=== PATIENT | male | born 1980 | race African-American/Black ===

== ENCOUNTER 2020-05-26 15:28 | Emergency (ER) | payer OTHER ==
[~2020-05-26] VITALS: Ht 177.8 cm; Wt 81.6 kg
--- NOTE | 2020-05-26 15:33 | Emergency Room Report ---
History of Present Illness General Chief Complaint: Overdose Source: Patient, EMS Present Illness HPI Disclaimer: Please note that this report is being documented using DRAGON technology. This can lead to erroneous entry secondary to incorrect interpretation by the dictating instrument. HPI: 39-year-old male with history of ESRD on hemodialysis MWF and substance abuse presents for evaluation of chest pain after using PCP. Patient states he was using PCP yesterday after which developed a pinching sensation over the left side of the chest. Denies shortness of breath, cough, swelling. Chest pain is been intermittent since. Does not seem to be related to activity or relieved by rest. Denies pain in the back, headache, vision changes, fever, chills, abdominal pain, nausea, vomiting. He is scheduled for hemodialysis today but missed his appointment. He received a full course of hemodialysis on Sunday. Denies alcohol or other drug use. PMH: ESRD, hypertension, substance abuse PSH: Dialysis access catheters Allergies: None reported Social Hx: PCP use Allergies: Coded Allergies: No Known Allergies (Unverified , 05/26/20) COVID-19 Screening Contact w/high risk pt: No Experienced COVID-19 symptoms?: No COVID-19 Testing performed PLANISHER: No Review of Systems All Other Systems: negative except mentioned in HPI Physical Exam Vital Signs Date Time Temp Pulse Resp B/P (MAP) Pulse Ox O2 Delivery O2 Flow Rate FiO2 05/26/20 15:18 98.1 104 14 196/123 (147) 97 Room Air General: Awake and alert, no acute distress, hypertensive HEENT: NC/AT. EOMI. Cardiovascular: Slightly tachycardic. S1 and S2 normal. Fistula with palpable thrill in right upper extremity. Resp: Normal work of breathing. No cough, wheezing or crackles appreciated Abdomen: Abdomen is soft, nondistended. Nontender Skin: Intact. No abrasions, laceration or rash over the exposed skin MSK: Normal tone and bulk. Moving all extremities. No obvious deformity. Neuro: Awake and alert. Mentating appropriately. Procedures Critical Care Time Critical Care Time Total critical care time: Approximately 45 minutes Due to a high probability of clinically significant, life threatening deterioration, the patient required the highest level of preparedness to intervene emergently and I personally spent this critical care time directly and personally managing the patient. This critical care time included obtaining a history, examining the patient, pulse oximetry, ordering and reviewing studies , ordering treatments, evaluating response to treatment and updating management plan as needed, frequent reassessment and discussion with other providers as well as arranging for ultimate disposition. This critical to care time was performed to assess and manage the high probability of life-threatening deterioration that could result in multiorgan failure. This critical care time is separate from the separately billable procedures and treating other patients. Medical Decision Making Diagnostic Impression: Primary Impression: ESRD (end stage renal disease) on dialysis Additional Impressions: Hypertensive urgency Substance abuse Elevated troponin ER Course 39-year-old male with history of ESRD on hemodialysis MWF presents for evaluation of chest discomfort after PCP use. Also missed dialysis today. Differential includes was not limited to chest pain secondary to drug use, ACS, arrhythmia, electrolyte abnormality. Patient is an uric and therefore cannot order drug screen but will order blood work including cardiac labs, BN peptide, chest x-ray. 1900: EKG does not show signs of acute ischemia or peak T waves. Chest x-ray does not show evidence of fluid overload or infiltrates. BNP elevated greater than 15,000, troponin slightly elevated 0.088. No prior for comparison. Labs consistent with end-stage renal disease with elevated BUN/creatinine. Patient' s blood pressure showed some initial improvement but remains hypertensive. He was treated with hydralazine and nitroglycerin ointment. He will require trend tropes, dialysis. He will be transferred to [facility] ([facility] ) according to his insurance provider. Dr. Branham accepting physician. Patient is stable for transfer. Laboratory Tests Test 05/26/20 16:25 White Blood Count 6.0 K/UL (4.8-10.8) Red Blood Count 3.89 M/UL (4.70-6.10) L Hemoglobin 11.6 G/DL (14.2-18.0) L Hematocrit 36.4 % (42.0-52.0) L Mean Corpuscular Volume 93 FL (80-99) Mean Corpuscular Hemoglobin 29.9 PG (27.0-31.0) Mean Corpuscular Hemoglobin Concent 32.0 G/DL (32.0-36.0) Red Cell Distribution Width 18.1 % (11.6-14.8) H Platelet Count 163 K/UL (150-450) Mean Platelet Volume 6.5 FL (6.5-10.1) Neutrophils (%) (Auto) 57.5 % (45.0-75.0) Lymphocytes (%) (Auto) 17.2 % (20.0-45.0) L Monocytes (%) (Auto) 7.3 % (1.0-10.0) Eosinophils (%) (Auto) 16.4 % (0.0-3.0) H Basophils (%) (Auto) 1.6 % (0.0-2.0) Prothrombin Time 12.0 SEC (9.30-11.50) H Prothrombin Time INR 1.1 (0.9-1.1) Activated Partial Thromboplast Time 28 SEC (23-33) Sodium Level 143 MMOL/L (136-145) Potassium Level 5.0 MMOL/L (3.5-5.1) Chloride Level 99 MMOL/L (98-107) Carbon Dioxide Level 27 MMOL/L (21-32) Anion Gap 17 mmol/L (5-15) H Blood Urea Nitrogen 78 mg/dL (7-18) H Creatinine 23.1 MG/DL (0.55-1.30) H Estimated Glomerular Filtration Rate 2.7 mL/min (>60) Glucose Level 79 MG/DL (74-106) Calcium Level 10.3 MG/DL (8.5-10.1) H Total Bilirubin 0.4 MG/DL (0.2-1.0) Aspartate Amino Transferase (AST) 19 U/L (15-37) Alanine Aminotransferase (ALT) 21 U/L (12-78) Alkaline Phosphatase 306 U/L (46-116) H Troponin I 0.088 ng/mL (0.000-0.056) Pro-B-Type Natriuretic Peptide 51926 pg/mL (0-125) H Total Protein 7.6 G/DL (6.4-8.2) Albumin 3.8 G/DL (3.4-5.0) Globulin 3.8 g/dL Albumin/Globulin Ratio 1.0 (1.0-2.7) Salicylates Level 2.3 ug/mL (2.8-20) L Acetaminophen Level < 2 MCG/ML (10-30) L Serum Alcohol < 3 mg/dL EKG Diagnostic Results EKG Time: 15:50 Rate: normal Rhythm: NSR ST Segments: no acute changes Other Impression Sinus rhythm, normal axis, normal intervals, no significant T wave peaking. No ST segment changes. Rhythm Strip Diag. Results Rhythm Strip Time: 15:50 EP Interpretation: yes Rate: 95 Rhythm: NSR, no PVC's, no ectopy Chest X-Ray Diagnostic Results Chest X-Ray Diagnostic Results : Chest X-Ray Ordered: Yes # of Views/Limited/Complete: 1 View Indication: Chest Pain EP Interpretation: Yes Interpretation: no consolidation, no effusion, no pneumothorax, no acute cardiopulmonary disease Impression: No acute disease Electronically Signed by: Electronically signed by Dr. Gus Pollack Last Vital Signs Date Time Temp Pulse Resp B/P (MAP) Pulse Ox O2 Delivery O2 Flow Rate FiO2 05/26/20 15:18 98.1 104 14 196/123 (147) 97 Room Air Disposition: SHORT-TERM HOSP Condition: Stable Gus Pollack MD May 26, 2020 15:33
[2020-05-26 15:40] VITALS: BP 196/123
--- NOTE | 2020-05-26 15:40 | NUR ---
ED Nurse Note: Patient was BIBA accompany by [employer] due to OD on PCP. Patient presented calm, cooperative, AAO x4, VSS at this time, skin is warm to touch. Patient has shunt on his right upper arm, pt got his last dialysis on Sunday, and missed on Sunday.
--- NOTE | 2020-05-26 16:26 | NUR ---
ED Nurse Note: IV line was established on left forearm 20ga, blood collected sent to lab
--- NOTE | 2020-05-26 16:55 | Diagnostic Imaging Report ---
Indication: Chest pain Technique: One view of the chest Comparison: None Findings: There is questionably very subtle peripheral hazy infiltrates . No dense consolidation. Pleural spaces are clear. Heart size is normal Impression: Questionable subtle hazy peripheral infiltrates, could indicate multifocal pneumonia if real. Correlate with clinical findings
[2020-05-26 17:03] LABS: BASOPHILS % (AUTO) 1.6 % (0.0-2.0); EOSINOPHILS % (AUTO) 16.4 % (0.0-3.0); HEMATOCRIT 36.4 % (42.0-52.0); HEMOGLOBIN 11.6 G/DL (14.2-18.0); LYMPHOCYTES % (AUTO) 17.2 % (20.0-45.0); MEAN CORPUSCULAR VOLUME 93 FL (80-99); MONOCYTES % (AUTO) 7.3 % (1.0-10.0); NEUTROPHILS % (AUTO) 57.5 % (45.0-75.0); PLATELET COUNT 163 K/UL (150-450); RED BLOOD COUNT 3.89 M/UL (4.70-6.10); RED CELL DISTRIBUTION WIDTH 18.1 % (11.6-14.8)
[2020-05-26 17:10] LABS: INR 1.1 (0.9-1.1)
[2020-05-26 17:41] LABS: ANION GAP 17 mmol/L (5-15); BLOOD UREA NITROGEN 78 mg/dL (7-18); CALCIUM 10.3 MG/DL (8.5-10.1); CARBON DIOXIDE 27 MMOL/L (21-32); CHLORIDE 99 MMOL/L (98-107); CREATININE 23.1 MG/DL (0.55-1.30); SODIUM 143 MMOL/L (136-145)
[2020-05-26 17:50] LABS: ALANINE AMINOTRANSFERASE 21 U/L (12-78); ALBUMIN 3.8 G/DL (3.4-5.0); ALKALINE PHOSPHATASE 306 U/L (46-116); ASPARTATE AMINO TRANSFERASE 19 U/L (15-37); BILIRUBIN,TOTAL 0.4 MG/DL (0.2-1.0)
[2020-05-26 18:24] VITALS: BP 160/100
[2020-05-26] MEDS ORDERED: Nitroglycerin 2% oint pkt TOPIC ONE (18:45)
--- NOTE | 2020-05-26 18:51 | NUR ---
ED Nurse Note: spoke with Anjeline, stated will call back with transfer information
--- NOTE | 2020-05-26 19:08 | NUR ---
ED Nurse Note: Patient resting in bed, no acute distress noted during assessment.
--- NOTE | 2020-05-26 19:08 | NUR ---
HAND-OFF: Report given to SAROJ Anaya.
[2020-05-26 19:40] VITALS: BP 197/114
[2020-05-26] MEDS ORDERED: Labetalol 5mg/ml 20ml vial IV ONE ×2 (19:45→20:45)
[2020-05-26 19:55] VITALS: BP 182/100
--- NOTE | 2020-05-26 20:24 | NUR ---
ED Nurse Note: Report given to SAROJ Deras at [facility].
[2020-05-26 20:51] VITALS: BP 145/84
[2020-05-26 21:54] VITALS: BP 137/95
--- NOTE | 2020-05-26 21:54 | NUR ---
ER DISCHARGE NOTE: Patient is cleared to be transferred to [facility] per ERMD, pt is aox4, on room air, with stable vital signs. [facility] was given patient packet, report given to SAROJ Deras at [facility]. Patient transported via gurney accompanied by ambulance personnel unit 14. Patient stable during transfer. No acute distress noted.
== END 2020-05-26 21:54 | disposition short-term general hospital (02) ==
LOC: EDBD 15:28 → EMR 16:04
DX: I12.0 Hypertensive chronic kidney disease with stage 5 chronic kidney disease or end stage renal disease (principal); N18.6 End stage renal disease; Z99.2 Dependence on renal dialysis; I16.0 Hypertensive urgency; F19.10 Other psychoactive substance abuse, uncomplicated; R79.89 Other specified abnormal findings of blood chemistry; R00.0 Tachycardia, unspecified
CPT/HCPCS: 36415; 71045; 80053; 83880; 84484; 85025; 85610; 85730; 87081; 93005; 96374; 96375; 96376; G0480; G0481; J0360; U0002; Z7502; 99291